=== PATIENT | female | born 1990 | race Caucasian/White ===

== ENCOUNTER 2018-09-11 18:23 | Emergency (ER) | payer BC ==
[2018-09-11] MEDS ORDERED: Ibuprofen TAB* 600 MG PO ONE (19:29)
--- NOTE | 2018-09-11 20:12 | UC ---
Shoulder Pain HPI - HPI Summary HPI Summary: TOOK A [address] TRIP HOME 3 DAYS AGO. THE NEXT DAY WOKE UP WITH MILD RIGHT- SIDED NECK AND SHOULDER PAIN. SINCE THEN HAS GOTTEN PROGRESSIVELY WORSE. PATIENT HAS SIGNIFICANT DISCOMFORT WITH MOVEMENT OF HER HEAD OR ARM. SHE DENIES ANY TRAUMA OR INJURY. IBUPROFEN AND ROBAXIN NOT HELPFUL. STATES THE PAIN IS KEEPING HER UP AT NIGHT. HAD SOME SLIGHT SHORTNESS OF BREATH WHEN LAYING BACK YESTERDAY BUT NONE NOW. TAKES HORMONAL CONTROL. NONSMOKER. NO KNOWN FAMILY HISTORY OF CLOTTING DISORDER. - History of Current Complaint Chief Complaint: UCLowerExtremity Stated Complaint: SHOULDER, AND NECK PAIN Time Seen by Provider: 09/11/18 19:06 Hx Obtained From: Patient, Family/[employer] Workflow Consultant - BOYFRIEND Hx Last Menstrual Period: 2 weeks ago Onset/Duration: Gradual Onset, Lasting Days, Still Present Timing: Constant Severity Initially: Mild Severity Currently: Severe Location Of Pain: Is Discrete @ - RIGHT POSTERIOR SHOULDER Pain Intensity: 10 Pain Scale Used: 0-10 Numeric Character: Sharp, Aching Aggravating Factor(s): Movement Alleviating Factor(s): Rest Associated Signs And Symptoms: Negative: Swelling, Redness, Bruising, Numbness/ Tingling Related History: Dominant Hand Right - Allergies/Home Medications Allergies/Adverse Reactions: Allergies Allergy/AdvReac Type Severity Reaction Status Date / Time No Known Allergies Allergy Verified 09/11/18 18:43 Home Medications: Home Medications Ibuprofen TAB* [Motrin TAB* 600 MG] 1 tab PO Q6HR PRN 09/11/18 [History Confirmed 09/11/18] Methocarbamol TAB* [Robaxin 500 MG TAB*] 500 mg PO TID PRN 09/11/18 [History Confirmed 09/11/18] NK [No Home Medications Reported] 09/11/18 [History Confirmed 09/11/18] PMH/Surg Hx/FS Hx/Imm Hx Previously Healthy: Yes - Surgical History Surgical History: Yes Surgery Procedure, Year, and Place: right hand surgery for cyst removal. - Family History Known Family History: Positive: Non-Contributory Negative: Blood Disorder - Social History Alcohol Use: None Substance Use Type: None Smoking Status (MU): Former Smoker Review of Systems All Other Systems Reviewed And Are Negative: Yes Constitutional: Positive: Negative Skin: Positive: Negative Respiratory: Positive: Negative Cardiovascular: Positive: Negative Gastrointestinal: Positive: Negative Musculoskeletal: Positive: Arthralgia, Decreased ROM, Myalgia Physical Exam Triage Information Reviewed: Yes Appearance: Well-Appearing, No Pain Distress - AT REST, Well-Nourished Vital Signs: Initial Vital Signs Temp 99.5 F 09/11/18 18:34 Pulse 106 09/11/18 18:34 Resp 16 09/11/18 18:34 BP 141/97 09/11/18 18:34 Pulse Ox 98 09/11/18 18:34 Vital Signs Reviewed: Yes Eyes: Positive: Conjunctiva Clear ENT: Positive: Hearing grossly normal Neck: Positive: Supple, Nontender Respiratory: Positive: No respiratory distress Cardiovascular: Positive: Pulses Normal Abdomen Description: Positive: Soft Musculoskeletal: Positive: ROM Intact, No Edema, Other: - EQUISITELY TENDER TO RIGHT SCAPULA AND POSTERIOR SHOULDER Neurological: Positive: Alert Psychological: Positive: Age Appropriate Behavior Skin: Negative: Rashes Diagnostics - Radiology RIGHT SCAPULA XRAY Radiology Interpretation Completed By: Radiologist Summary of Radiographic Findings: UNREMARKABLE RIGHT SHOULDER XRAY Radiology Interpretation Completed By: ED Physician Summary of Radiographic Findings: UNREMARKABLE Shoulder Course/Dx - Course Course Of Treatment: PT WITH PROBABLE STRAIN OF RIGHT SHOULDER. DISCUSSED POSSIBILITY (ALBEIT LOW SUSPICION) FOR CLOT GIVEN RECENT TRAVEL, OCP AND BACK PAIN WITH SLIGHTLY ELEVATED HR. OFFERED TRANSFER TO ER FOR FURTHER EVAL. PT DECLINES. STATES SHE FELT MUCH BETTER AFTER IBUPROFEN AND A SNACK. REPORTS THAT OTHER THAN A CUP OF COFFEE HAS NOT EATEN ANYTHING ALL DAY. HR ALSO IMPROVED AT RECHECK. D/C HOME WITH CAREFUL OBSERVATION. - Differential Dx/Diagnosis Provider Diagnosis: Right shoulder strain Discharge - Sign-Out/Discharge Documenting (check all that apply): Patient Departure All imaging exams completed and their final reports reviewed: No - Discharge Plan Condition: Stable Disposition: HOME Patient Education Materials: Shoulder Sprain (ED) Referrals: [facility] [Outside] - If Needed Additional Instructions: XRAY TODAY NEGATIVE FOR FRACTURE OR DISLOCATION. YOU FELT BETTER AFTER IBUPROFEN AND A SNACK. YOUR SYMPTOMS SHOULD CONTINUE TO IMPROVE OVER THE NEXT 1- 2 WEEKS. IF YOU DO NOT IMPROVE EXPECTED FOLLOW-UP WITH YOUR PCP. OTC IBUPROFEN OR ALEVE NEEDED FOR DISCOMFORT. REST, ICE, COMPRESS, ELEVATE. ROBERT WRAP AND CRUTCHES NEEDED FOR SYMPTOM RELIEF. BE SURE TO GO THROUGH SLOW RANGE OF MOTION AND STRETCHING EXERCISES DAILY YOU ARE ABLE TO PREVENT STIFFENING UP AND MAKING THE DISCOMFORT WORSE. GO TO ED WITHOUT FAIL IF YOU DEVELOP WORSENING PAIN, SHORTNESS OF BREATH, CHEST PAIN, NAUSEA, SWEATS, DIZZINESS OR ANY OTHER CONCERNING SYMPTOMS. CALL THE NUMBER BELOW FOR ASSISTANCE IN ESTABLISHING WITH A PCP An additional resource available to assist in finding the appropriate physician for your health care needs is the [facility] ([facility]). You may contact them by calling [phone]. - Billing Disposition and Condition Condition: STABLE Disposition: Home
[2018-09-11 20:36] VITALS: BP 142/83
--- NOTE | 2018-09-12 07:36 | UC ---
- EKG/XRAY/CT Xray Comments: wet read correct Course/Dx - Diagnoses Provider Diagnoses: Right shoulder strain Discharge - Sign-Out/Discharge Documenting (check all that apply): Post-Discharge Follow Up All imaging exams completed and their final reports reviewed: Yes - Discharge Plan Condition: Stable Disposition: HOME Patient Education Materials: Shoulder Sprain (ED) Referrals: [facility] [Outside] - If Needed Additional Instructions: XRAY TODAY NEGATIVE FOR FRACTURE OR DISLOCATION. YOU FELT BETTER AFTER IBUPROFEN AND A SNACK. YOUR SYMPTOMS SHOULD CONTINUE TO IMPROVE OVER THE NEXT 1- 2 WEEKS. IF YOU DO NOT IMPROVE EXPECTED FOLLOW-UP WITH YOUR PCP. OTC IBUPROFEN OR ALEVE NEEDED FOR DISCOMFORT. BE SURE TO GO THROUGH SLOW RANGE OF MOTION AND STRETCHING EXERCISES DAILY YOU ARE ABLE TO PREVENT STIFFENING UP AND MAKING THE DISCOMFORT WORSE. GO TO ED WITHOUT FAIL IF YOU DEVELOP WORSENING PAIN, SHORTNESS OF BREATH, CHEST PAIN, NAUSEA, SWEATS, DIZZINESS OR ANY OTHER CONCERNING SYMPTOMS. CALL THE NUMBER BELOW FOR ASSISTANCE IN ESTABLISHING WITH A PCP An additional resource available to assist in finding the appropriate physician for your health care needs is the [facility] ([facility]). You may contact them by calling [phone]. - Billing Disposition and Condition Condition: STABLE Disposition: Home
== END 2018-09-11 21:28 | disposition home or self-care (01) ==
LOC: UCEAST 18:23
DX: S46.911A Strain of unspecified muscle, fascia and tendon at shoulder and upper arm level, right arm, initial encounter (principal); X58.XXXA Exposure to other specified factors, initial encounter; Y92.9 Unspecified place or not applicable; Z87.891 Personal history of nicotine dependence
CPT/HCPCS: 99202; A9270-GY; G0463

== ENCOUNTER 2018-10-06 15:06 | Emergency (ER) | payer BC ==
[2018-10-06 15:20] VITALS: BP 165/90
--- NOTE | 2018-10-06 15:39 | UC ---
Abdominal Pain Female HPI - HPI Summary HPI Summary: pt felt fine this am, ate ate [employer] 2 hours ago with boyfriend (who is feeling well). 1 hour ago pt experienced lower R abd pain and anusea, vomited and had 3 bouts of loose stool. no longer nauseous but pain worse in lower abd, arjun R lower abd - History of Current Complaint Chief Complaint: UCAbdominalPain Stated Complaint: ABD PAIN Time Seen by Provider: 10/06/18 15:11 Hx Obtained From: Patient Hx Last Menstrual Period: 09/15/18 Onset/Duration: Sudden Onset Timing: Constant Severity Initially: Severe Severity Currently: Severe Pain Intensity: 9 Location: Discrete At: RLQ Radiates: No Character: Aching, Sharp Aggravating Factor(s): Other: - lying flat Alleviating Factor(s): Position Associated Signs and Symptoms: Positive: Nausea. Negative: Blood in Stool Allergies/Adverse Reactions: Allergies Allergy/AdvReac Type Severity Reaction Status Date / Time No Known Allergies Allergy Verified 10/06/18 15:20 Home Medications: Home Medications Desogestrel-Ethinyl Estradiol [Enskyce] 1 tab PO DAILY 10/06/18 [History Confirmed 10/06/18] Ibuprofen TAB* [Motrin TAB* 800 MG] 800 mg PO ONCE 10/06/18 [History Confirmed 10/06/18] PMH/Surg Hx/FS Hx/Imm Hx Previously Healthy: Yes - Surgical History Surgical History: Yes Surgery Procedure, Year, and Place: right hand surgery - Family History Known Family History: Positive: Non-Contributory Negative: Blood Disorder - Social History Occupation: Student Lives: With Family Alcohol Use: None Substance Use Type: None Smoking Status (MU): Former Smoker Have You Smoked in the Last Year: No Review of Systems All Other Systems Reviewed And Are Negative: Yes Constitutional: Positive: Negative. Negative: Fever, Chills Skin: Positive: Negative Respiratory: Positive: Negative. Negative: Cough Cardiovascular: Positive: Negative. Negative: Chest Pain Gastrointestinal: Positive: Abdominal Pain, Vomiting, Diarrhea Genitourinary: Positive: Negative. Negative: Dysuria, Hematuria, Frequency, Vaginal/Penile Discharge, Abnormal Bleeding Musculoskeletal: Positive: Negative Neurological: Positive: Negative Psychological: Positive: Negative Is Patient Immunocompromised?: No Physical Exam Triage Information Reviewed: Yes Appearance: Well-Nourished, Pain Distress Vital Signs: Initial Vital Signs Temp 98.2 F 10/06/18 15:15 Pulse 91 10/06/18 15:15 Resp 20 10/06/18 15:15 BP 165/90 10/06/18 15:15 Pulse Ox 100 10/06/18 15:15 Vital Signs Reviewed: Yes Respiratory: Positive: Lungs clear Cardiovascular Exam: Normal Cardiovascular: Positive: RRR Abdomen Description: Positive: No Organomegaly, McBurney's Point Tenderness, Other: - positive rebound tenderness RLQ. Negative: CVA Tenderness (R), CVA Tenderness (L), Distended Bowel Sounds: Positive: Present Neurological Exam: Normal Psychological Exam: Normal Skin Exam: Normal Abd Pain Female Course/Dx - Course Course Of Treatment: pt informed of need for further testing not [facility], poss ovarian cyst or appendicitis. She refuses ambulance but agrees to go straight to ER with boyfriend to transport. pt discharged in stable condition. B/P elevated d/t pain - Differential Dx/Diagnosis Differential Diagnosis: Appendicitis, Diverticulitis, Ectopic , Provider Diagnosis: Abdominal pain Discharge - Sign-Out/Discharge Documenting (check all that apply): Patient Departure All imaging exams completed and their final reports reviewed: No Studies - Discharge Plan Condition: Stable Disposition: HOME Patient Education Materials: Acute Abdominal Pain (ED) Referrals: No Primary Care Phys,NOPCP [Primary Care Provider] - Additional Instructions: please go directly from here to the emergency room now - Billing Disposition and Condition Condition: STABLE Disposition: Home
== END 2018-10-06 15:50 | disposition home or self-care (01) ==
LOC: UCEAST 15:06
DX: R10.31 Right lower quadrant pain (principal); R11.2 Nausea with vomiting, unspecified; R03.0 Elevated blood-pressure reading, without diagnosis of hypertension; Z87.891 Personal history of nicotine dependence
CPT/HCPCS: 84702; 99212; G0463

== ENCOUNTER 2018-10-06 16:08 | Emergency (ER) | payer BC ==
[2018-10-06] MEDS ORDERED: NS 0.9% 1000 ML** 1,000 ML IV ONE (17:42)
--- NOTE | 2018-10-06 17:42 | ED ---
Abdominal Pain/Female - HPI Summary HPI Summary: This patient is a 27 year old F presenting to [facility] with a chief complaint of bilateral lower abdominal pain with n/v/d since today. Patient denies hematuria , vaginal bleeding, rash, and fever. Patient took [id number] of Ibuprofen. Pain 6/ 10 upon triage. Patient denies significant medical history and abdominal surgeries. - History of Current Complaint Chief Complaint: EDAbdPain Stated Complaint: ABDOMONIAL PAIN Time Seen by Provider: 10/06/18 17:28 Hx Obtained From: Patient Hx Last Menstrual Period: 09/15/18 Onset/Duration: Lasting Hours Timing: Constant Pain Intensity: 6 Pain Scale Used: 0-10 Numeric Location: Discrete At: RLQ, Discrete At: LLQ Associated Signs and Symptoms: Positive: Nausea, Vomiting, Diarrhea Allergies/Adverse Reactions: Allergies Allergy/AdvReac Type Severity Reaction Status Date / Time No Known Allergies Allergy Verified 10/06/18 16:14 Home Medications: Home Medications Multivitamin [Multiple Vitamins] 1 tab PO DAILY 10/06/18 [History Confirmed ] PMH/Surg Hx/FS Hx/Imm Hx Respiratory History: Denies: Hx Asthma GI History: Denies: Hx Crohn's Disease - Surgical History Surgery Procedure, Year, and Place: right hand surgery Infectious Disease History: No Infectious Disease History: Denies: Traveled Outside the [place] in Last 30 Days - Family History Known Family History: Negative: Blood Disorder - Social History Alcohol Use: None Substance Use Type: Reports: None Smoking Status (MU): Never Smoked Tobacco Have You Smoked in the Last Year: No Review of Systems Negative: Fever Positive: Abdominal Pain, Vomiting, Diarrhea, Nausea Negative: Rash All Other Systems Reviewed And Are Negative: Yes Physical Exam - Summary Physical Exam Summary: Appearance: Well appearing, mild pain distress Skin: warm, dry, reflects adequate perfusion Head/face: normal Eyes: EOMI, RAJANI ENT: normal Neck: supple, non-tender Respiratory: CTA, breath sounds present Cardiovascular: RRR, pulses symmetrical Abdomen: tenderness in LLQ and RLQ, soft Musculoskeletal: normal, strength/ROM intact Neuro: normal, sensory motor intact, A&Ox3 Triage Information Reviewed: Yes Vital Signs On Initial Exam: Initial Vitals Temp Pulse Resp BP Pulse Ox 98.2 F 90 16 147/94 98 10/06/18 16:10 10/06/18 16:10 10/06/18 16:10 10/06/18 16:10 10/06/18 16:10 Vital Signs Reviewed: Yes Diagnostics - Vital Signs Vital Signs Temp Pulse Resp BP Pulse Ox 10/06/18 16:10 98.2 F 90 16 147/94 98 - Laboratory Result Diagrams: 10/06/18 18:19 10/06/18 18:19 Lab Statement: Any lab studies that have been ordered have been reviewed, and results considered in the medical decision making process. - CT CT A/P CT Interpretation Completed By: Radiologist Summary of CT Findings: Hepatic steatosis versus hepatitis. No additional findings to correlate with. patient's symptomatology. Specifically no appendicitis. ED Physician has reviewed this report. Abdominal Pain Fem Course/Dx - Course Course Of Treatment: 27 year old F presenting to [facility] with a chief complaint of bilateral lower abdominal pain with n/v/d since today. Patient denies hematuria, vaginal bleeding, rash, and fever. Patient took [id number] of Ibuprofen. Bloodwork and UA obtained with WBC of 14.2. Patient given 4mg zofran and 2mg morphine. CT A/P with contrast reveals, " Hepatic steatosis versus hepatitis. No additional findings to correlate with. patient's symptomatology. Specifically no appendicitis. ". Results discussed with patient. Patient will be discharged and is instructed to follow up/ establish a primary care provider. She is given the [facility] referral. - Diagnoses Differential Diagnosis: Positive: Appendicitis, Diverticulitis, Ovarian Cyst, Pancreatitis Provider Diagnoses: Unspecified abdominal pain Discharge - Sign-Out/Discharge Documenting (check all that apply): Patient Departure - discharge Patient Received Moderate/Deep Sedation with Procedure: No - Discharge Plan Condition: Stable Disposition: HOME Patient Education Materials: Abdominal Pain (ED) Referrals: [facility]ICIAN REFERRAL [Outside] - 3 Days Additional Instructions: RETURN TO THE EMERGENCY DEPARTMENT FOR CHANGING OR WORSENING SYMPTOMS. - Billing Disposition and Condition Condition: STABLE Disposition: Home - Attestation Statements Document Initiated by Amanda: Yes Documenting Scribe: Josselin Tavarez Provider For Whom Amanda is Documenting (Include Credential): Ramone Bishop MD Scribe Attestation: Josselin Carmona scribed for Ramone Bishop MD on 10/07/18 at 1712. Scribe Documentation Reviewed: Yes Provider Attestation: The documentation as recorded by the Josselin bermudez Roetzer accurately reflects the service I personally performed and the decisions made by me, Ramone Bishop MD Status of Scribe Document: Viewed
[2018-10-06] MEDS ORDERED: Ondansetron INJ* 2 MG/ML VIAL IV ONE (17:43)
[2018-10-06] MEDS ORDERED: Morphine VIAL* 10 MG/ML 1 ML VIAL IV ONE (17:44)
[2018-10-06 18:27] LABS: ABS Basophils 0 10^3/ul (0-0.2); ABS Eosinophils 0 10^3/ul (0-0.6); ABS Lymphocytes 2.1 10^3/ul (1.0-4.8); ABS Monocytes 0.8 10^3/ul (0-0.8); ABS Neutrophils 11.3 10^3/ul (1.5-7.7); ABS Nucleated RBC 0 10^3/ul; Eosinophil % 0.1 %; Hematocrit 39 % (35-47); Hemoglobin 13.1 g/dl (12.0-16.0); Lymphocyte % 14.7 %; Mean Corpuscular HGB Conc 34 g/dl (31-36); Mean Corpuscular Hemoglobin 29 pg (27-31); Mean Corpuscular Volume 86 fL (80-97); Mean Platelet Volume 8.5 fL (7.4-10.4); Nucleated Red Blood Cells % 0; Platelet Count 300 10^3/ul (150-450); Red Blood Count 4.55 10^6/ul (4.00-5.40); Red Cell Distribution Width 13 % (10.5-15); White Blood Count 14.2 10^3/ul (3.5-10.8)
[2018-10-06 18:43] LABS: Activated Partial Thrombo Time 30.8 seconds (26.0-36.3); INR 0.9 (0.77-1.02)
[2018-10-06 18:45] LABS: ALT 43 U/L (7-52); AST 34 U/L (13-39); Albumin 4.5 g/dL (3.2-5.2); Albumin/Globulin Ratio 1.5 (1-3); Alkaline Phosphatase 81 U/L (34-104); Anion Gap 10 mmol/L (2-11); BUN/Creatinine Ratio 21.3 (8-20); Blood Urea Nitrogen 13 mg/dL (6-24); C Reactive Protein 11.09 mg/L (<8.01); CO2 Carbon Dioxide 21 mmol/L (22-32); Calcium 9.2 mg/dL (8.6-10.3); Chloride 106 mmol/L (101-111); EGFR African American 142.4 (>60); EGFR Non-African American 117.7 (>60); Globulin 3.1 g/dL (2-4); Glucose 97 mg/dL (70-100); Potassium 4.2 mmol/L (3.5-5.0); Sodium 137 mmol/L (135-145); Total Protein 7.6 g/dL (6.4-8.9)
[2018-10-06 18:51] LABS: HCG Pregnancy < 0.60 mIU/mL
[2018-10-06] MEDS ORDERED: Iohexol 300* (CONTRAST) 10 ML SDV IV ONE (19:36)
[2018-10-06 19:40] LABS: Urine Appearance Clear; Urine Bilirubin Negative (Negative); Urine Blood Negative (Negative); Urine Color Straw; Urine Glucose Negative (Negative); Urine Ketones 1+ (Negative); Urine Nitrite Negative (Negative); Urine Protein Negative (Negative); Urine Specific Gravity 1.008 (1.010-1.030); Urine Urobilinogen Negative (Negative)
[2018-10-06 21:26] VITALS: BP 137/85
== END 2018-10-06 21:30 | disposition home or self-care (01) ==
LOC: ED 16:08
DX: R10.30 Lower abdominal pain, unspecified (principal); R11.2 Nausea with vomiting, unspecified; R19.7 Diarrhea, unspecified
CPT/HCPCS: 36415; 74177; 80053; 81003; 83605; 83690; 84702; 85025; 85610; 85730; 86140; 99283; J2270; J2405; Q9967